=== PATIENT | female | born 1955 | race Caucasian/White ===

== ENCOUNTER → 2018-08-01 | Outpatient (CLI) | payer BC ==
[~2018-08-01] VITALS: Ht 157.5 cm; Wt 60.3 kg
[~2018-08-01] MED LIST: LISINOPRIL5 MG PO; STOOL SOFTENER100 M1 PO; VAGIFEM10 MCG VAG
--- NOTE | ~2018-08-01 | PATH ---
[facility] [address] [address] PATHOLOGY RPT PROCEDURE Name: MIROSLAVA MARIO Room #: REG [facility] M.R.#: [id number] Admission: 08/01/18 Date of : 55 Discharge: Report #: [id number] Path Case #: [id number] [facility] Accession Number: [id number] . 01 Material submitted: . PART A: BX- RANDOM OF GASTRIC R/O H. PYLORI PART B: BX OF GASTRIC POLYP PART C: BX OF CECAL POLYPS . 01 Clinical history: . Gastritis, cecal colon polyps . 02 Diagnosis: A. Gastric mucosa, random, endoscopic biopsy: - Mild reactive gastropathy. - Negative for intestinal metaplasia or atrophy. - Negative for Helicobacter pylori (properly controlled immunohistochemical stain performed). . B. Gastric polyp, endoscopic biopsy: - Compatible with a hyperplastic polyp associated with reactive gastropathy. - Negative for dysplasia. . C. Polyps, cecal polyps, endoscopic biopsy: - Tubular adenoma. - Negative for high grade dysplasia. (IUV/db; 08/02/18) LBQ/08/02/2018 . 02 Electronically signed: . Jaylin Bhandari MD, Pathologist NPI- [id number] . 01 Gross description: . A. Received in formalin labeled "Miroslava Mario BX random gastric, rule out H. pylori," are 5 segments of dawn soft tissue measuring 1.7 x 0.8 x 0.2 cm in aggregate dimensions and ranging from 0.3 to 0.7 cm in maximum dimension. The specimen is submitted entirely in cassette A1. . B. Received in formalin labeled "Miroslava Mario BX of gastric polyp," are 5 segments of dawn soft tissue measuring 0.9 x 0.6 x 0.2 cm in aggregate dimensions and ranging from 0.2 to 0.5 cm in maximum dimension. The specimen is submitted entirely in cassette B1. . C. Received in formalin labeled "Miroslava Mario BX of cecal polyps," is a single segment of dawn soft tissue measuring 0.3 cm in maximum dimension. [address] [address] PATHOLOGY RPT PROCEDURE Name: MIROSLAVA MARIO Room #: REG CLShonda Burnett#: [id number] Admission: 08/01/18 Date of : 55 Discharge: Report #: [id number] Path Case #: [id number] The specimen is entirely submitted in cassette C1. (TSD; 08/01/2018) TOB/TOB . 02 Pathologist provided ICD-10: K31.9, K31.7, D12.0 . 02 CPT . 834937, 942571, 953607, [id number] Specimen Comment: A courtesy copy of this report has been sent to Specimen Comment: [phone], . Specimen Comment: Report sent to / DR WONG Specimen Comment: A duplicate report has been generated due to demographic updates. Performed at: [address], [place] [id number] MD Daniel Perez MD Phone: [phone] Performed at: [address] [id number] MD Jaylin Bhandari MD Phone: [phone]
== END | disposition home or self-care (01) ==
LOC: GI 07:45
DX: Z12.11 Encounter for screening for malignant neoplasm of colon (principal); D12.0 Benign neoplasm of cecum; K31.7 Polyp of stomach and duodenum; K31.9 Disease of stomach and duodenum, unspecified; K64.8 Other hemorrhoids; I10 Essential (primary) hypertension; B19.20 Unspecified viral hepatitis C without hepatic coma; Z90.49 Acquired absence of other specified parts of digestive tract; Z98.890 Other specified postprocedural states; Z79.899 Other long term (current) drug therapy
CPT/HCPCS: 62110; 62900